=== PATIENT | female | born 1940 | race Hispanic/Latino ===

== ENCOUNTER 2018-01-03 12:42 | Outpatient (CLI) | payer OTHER ==
--- NOTE | 2018-01-03 14:48 | RAD ---
THREE VIEWS OF RIGHT RIBS FRONTAL RADIOGRAPH CHEST: DATE: 01/03/18. COMPARISON: Frontal radiograph chest 12/08/17 at [facility]. HISTORY: Past history of pneumothorax and rib fractures. FINDINGS: Frontal radiograph chest demonstrates a new small/moderate sized right pneumothorax involving the rig ht lung apex with associated volume loss involving the right upper lobe resulting in lobulated densit y in the right perihilar/suprahilar region. There is no pneumothorax seen on the left. There are numerous displaced right-sided rib fractures including the posterior aspect of the 4th, 6th , and 7th ribs as well as numerous lateral right-sided rib fractures. No focal consolidation noted o n the left. IMPRESSION: Numerous displaced right-sided rib fractures, as seen on prior imaging. There is a small/moderate pn eumothorax in the right lung apex with resultant volume loss/collapse of right upper lobe. Results called to Sofía Cabrera at the 1:30pm on 01/03/18. CODE CR POS: [place]
== END 2018-01-03 12:43 | disposition home or self-care (01) ==
LOC: MADRAD 12:42
PROVIDERS: ATTEND Nurse Practitioner
DX: S22.41XA Multiple fractures of ribs, right side, initial encounter for closed fracture (principal); J93.9 Pneumothorax, unspecified

== ENCOUNTER 2018-01-03 15:09 | Emergency (ER) | payer SELFPAY ==
[2018-01-03 17:12] LABS: #Basophils 0.1 thou/uL (0.0-0.2); #Eosinphils 0.5 thou/uL (0.0-0.7); #Lymphocytes 2.5 thou/uL (1.20-3.40); #Monocytes 0.5 thou/uL (0.11-0.59); #Neutrophils 4.3 thou/uL (1.40-6.50); %Basophils 1.6 % (0.0-1.0); %Eosinophils 5.9 % (0.0-10.0); %Lymphocytes 31.4 % (21.0-51.0); %Monocytes 6.1 % (0.0-10.0); Mean Corpuscular HGB CONC 33.1 g/dL (32.0-36.0); Mean Corpuscular Hemoglobin 30.5 pg (27.0-31.0); Mean Platelet Volume 5.6 fL (7.4-10.4); Platelet Count 316 thou/uL (130-400); RBC Distribution Width 13.5 % (11.5-14.5); White Blood Cell (WBC) Count 7.9 thou/uL (4.8-10.8)
[2018-01-03 17:27] LABS: ALT (SGPT) 9 U/L (8-55); AST (SGOT) 12 U/L (5-34); Albumin 3.8 g/dL (3.4-4.8); Alkaline Phosphatase 85 U/L (40-150); Anion Gap 14 mmol/L (10-20); BUN (Urea Nitrogen) 20 mg/dL (9.8-20.1); Bilirubin, Total 0.3 mg/dL (0.2-1.2); Calc. Creatinine Clearance 0 mL/min (70-130); Calcium 9.2 mg/dL (7.8-10.44); Carbon Dioxide 24 mmol/L (23-31); Chloride 109 mmol/L (98-107); Estimated GFR-MDRD 72; Globulin 3.2 g/dL (2.4-3.5); Glucose 94 mg/dL (83-110); Potassium 3.4 mmol/L (3.5-5.1); Sodium 144 mmol/L (136-145)
== END 2018-01-03 19:06 | disposition short-term general hospital (02) ==
LOC: MADERS 15:09
DX: S27.0XXA Traumatic pneumothorax, initial encounter (principal); S22.41XA Multiple fractures of ribs, right side, initial encounter for closed fracture; I10 Essential (primary) hypertension; Z87.891 Personal history of nicotine dependence; Z79.899 Other long term (current) drug therapy; W19.XXXA Unspecified fall, initial encounter
CPT/HCPCS: 36415; 80053; 85025; 99284